=== PATIENT | female | born 1995 | race Caucasian/White ===

== ENCOUNTER 2022-11-08 08:00 | Outpatient (RCR) | payer BC, SELFPAY ==
--- NOTE | 2022-11-08 08:00 | BH.COMM_ITS ---
Communication Note Communication with Client Communication Note: Completed initial paperwork with pt. No changes since intake appointment. Completed the CSSR-S with pt and pt is moderate risk. Pt denies any suicide attempts, but pt reports have fleeting SI with thoughts of methods, but denies ever having intent because of her family. Pt denies any active SI, plan, or intent today. Pt does not have access to guns and denies access to stockpile of medications. Provided lethal means counseling. Encouraged pt to bring any un needed medications to IOP and staff would help dispose medications using doterra bags. Discussed with tx team and Dr. 

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
--- NOTE | 2022-11-09 10:10 | BH.SGPN.GN ---
Behaviors/Verbalizations/Mental Status: []Pt alert and oriented, appropriate grooming/appearance. Eye contact good. Motor activity appropriate. Speech within normal limits. Affect constricted, mood depressed. Thoughts linear, logical, no signs of hallucinations or delusions. Client Response/Progress/Benefit: []Pt was an engaged participant AEB taking notes, engaging in small group discussion and listening attentively to others. Attentive during psychoeducation. Contributed during interactive discussions in which peers attempted to define crisis. Pt identified some examples of potential crisis. Group also worked together to identify unhealthy responses to crisis which included: isolation, self-harm, substance abuse, avoidance, and lashing out. Pt identified personal warning signs as: apathy, self-sabotage, and anger/irritability. Benefited from increased understanding of crisis and awareness of personal responses to crisis. Pt will continue IOP tx to improve daily functioning, decrease anger outbursts, and prevent decompensation.
--- NOTE | 2022-11-09 11:05 | BH.SGPN.GN ---
Behaviors/Verbalizations/Mental Status: [] Eye contact is good. Motor activity is appropriate. Appearance is casual. Speech is Appropriate. Mood is depressed. Affect is congruent. Thoughts are linear and logical. No evidence of psychosis Client Response/Progress/Benefit: [] Pt did not participate in group discussions however was Attentive during psychoeducation. In small group pt along with peers developed an action plan for their crisis warning signs. Pt identified two crisis warning signs as well as an action plan for each. One crisis warning sign is apathy with an actions plan that involved; grounding exercises, escapism, workout, grateful list, opposite action. Other warning sign was self-sabotage with an action plan that involved; accountability davonte, remind self of facts/consequences of actions, delay/distract/decide. Benefited from increased awareness of crisis warning signs and by developing crisis intervention strategies. Will continue in IOP to prevent decompensation, stabilize mood, and improve functioning. Narrative Note: []
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
--- NOTE | 2022-11-09 12:51 | BH.DR.ITP ---
Initial Treatment Plan Patient Information Visit Information: ADMISSION DATE: EXPECTED LOS: 4-6 weeks Problems/Symptoms Problem #1:: Depression Symptom:: Sadness, guilt, irritability, low energy, decreased concentration, passive thoughts of , passive suicidal ideation Problem #2:: Anxiety Symptom:: Worry, rumination, panic attacks, avoidance, nightmares, flashbacks
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
--- NOTE | 2022-11-11 11:05 | BH.SGPN.GN ---
Behaviors/Verbalizations/Mental Status: [] Pt alert and oriented, neatly dressed and groomed. Eye contact good. Motor activity appropriate. Speech within normal limits. Affect flat, mood anxious and depressed. Thoughts linear, logical, no signs of hallucinations or delusions. Client Response/Progress/Benefit: [] Pt engaged participant AEB completing self-assessment worksheet and providing input throughout discussion. Pt completed worksheet identifying current self-care practices and what self-care activities pt wants to start using. Pt selected emotional self-care to begin practicing more consistently. Pt plans to do this by practicing the coping skills she learns at [facility] each day. Appeared to benefit from completing the self-care evaluation and gaining insights into current self-care practices, as well as identifying areas in which pt would like to improve upon.? Pt will continue IOP tx to prevent decompensation, increase healthy coping skills, and improve emotional regulation. ? Narrative Note: []
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
--- NOTE | 2022-11-11 15:05 | BH.MTP_ITS ---
Master Treatment Plan Patient Information Program Physician:: Dr. Jay Primary Therapist:: Telma Faria [facility] Psychiatric Diagnoses Psychiatric Diagnoses:: 1. Major depressive disorder, single episode, severe without psychosis (F32.2) 2. PTSD 3. Generalized anxiety disorder 4. Cluster B traits Diagnosis Code(s):: F33.2 Estimated LOS Estimated LOS (in weeks):: 6 Problem/Goal #1 Problem/Goal #1 Stated Goal:: Client will reduce depression and anger due to Major Depressive Disorder through Intensive Outpatient Program. Description of Barriers: Potential barriers include: distorted thoughts, anger, negative self-talk, and psychosocial stressors. Client expresses Objectives Objective #1: Stated Objective: Client will learn and utilize 2-3 healthy coping strategies to manage depressive symptoms as shown by reduced DSM-5 cross-cutting symptom measure score. Interventions: Therapist will help client identify triggers and warning signs of depression and will teach client various coping skills to manage client?s symptoms and give client tangible resources to use to regulate emotions. Discharge Criteria: Pt will have met this goal when pt reports use of healthy coping skills that help manage mood and pt's score on the DSM 5 cross cutting measure for depression has been decreased. Target Date: 12/20/22 Review Date: 12/07/22 Objective #2: Stated Objective: Identify, challenge, and replace anger-inducing self- talk with self-talk that facilitates a less angry reaction. Interventions: Explore the client?s self-talk that mediates his/her angry feelings and actions. Identify and challenge biases, assisting him/her in generating appraisals and self-talk that corrects for the biases and facilitates a more flexible response to frustration. Combine new self-talk with calming skills as par of a set of coping skills to manage anger. Discharge Criteria: Client will have met this objective when can identify anger inducing self-talk and replace with thoughts that help decrease reactive anger responses. Target Date: 12/20/22 Review Date: 12/07/22 Problem/Goal #2 Problem/Goal #2 Stated Goal:: Stabilize anxiety level while increasing ability to function on daily basis. Objectives Objective #1: Stated Objective: Client will learn and implement 2-3 calming skills to reduce overall anxiety and manage anxiety symptoms. Interventions: Therapist will help client increase awareness of anxiety triggers and educate client on the ways anxiety impacts overall health. Therapist will teach client various calming and mindfulness strategies to promote emotional regulation and reduction of anxiety. Therapist will encourage client to implement healthy coping skills on a regular basis. Discharge Criteria: Client will have achieved this goal when can verbalize and consistently utilize at least 2 calming strategies that client reports help decrease anxious symptoms. Target Date: 12/20/22 Review Date: 12/07/22 Objective #2: Stated Objective: Pt will decrease anxious symptoms AEB pt?s score on the DSM 5 cross-cutting measure improve pt?s daily functioning. Interventions: Through groups and individual therapy, pt will be provided education about anxiety?s impact on body and common physiological reaction to anxiety. Therapist will teach pt appropriate breathing techniques and build healthy coping skills to manage daily anxieties. Discharge Criteria: Pt will have met this goal when pt?s score on the DSM 5 cross cutting measure for anxiety has been decreased and per pt?s report daily functioning has improved. Target Date: 12/20/22 Review Date: 12/07/22
--- NOTE | 2022-11-24 10:10 | BH.SGPN.GN ---
Behaviors/Mental Status: [] Eye contact is fair. Motor activity is appropriate. Appearance is casual. Speech is Appropriate. Mood is anxious. Affect is constricted. Thoughts are linear and logical. No evidence of psychosis. Client Response/Progress/Benefit: [] Pt engaged participant AEB listening attentively to others, taking notes, and providing input at times. Participated in and was engaged during experiential activity. Engaged during interactive discussion on what failure means to the group in which peers identified that failure is ... not meeting expectations, not having a desired outcome, and not succeeding in a task. Group was able to identify impact of fear of failure. Client stated fear of failure has kept her from going to social events out of fear of saying something dumb in front of others. Attentive during interactive discussion on the role that FOF plays in mental wellness, depression, anxiety, and growth. Benefited from increased awareness of how the role that FOF plays in mental health and decision-making. Will continue in IOP to challenge distortions, increase healthy coping, and prevent decompensation.
--- NOTE | 2022-11-24 11:48 | PCM.BH.PN_ITS ---
Progress Note Progress Note: And history of Present Illness/Interim History: The patient is a 26-year-old single female with a history of depression and anxiety who is seen in follow-up at the [facility] behavioral health IOP program. I last saw the patient 2 weeks ago and at that time we continued weaning her Zoloft and she discontinued it 1 week ago. In addition Effexor was changed to Effexor XR 150 mg daily and she was instructed that she could increase her Vistaril to 100 mg at bedtime for sleep. The patient states that she has tolerated the medication changes well and her sleep is much better at 7 or 8 hours a night now. Her mood and anxiety have both improved and she feels she is doing much better overall. She states that she has only had 1 really bad day in the past 2 weeks now. She has not had any anger outbursts in the last week. She has had only 1 panic attack in the last 2 weeks and she tried to use some relaxation exercises she is using to cope with this. Energy level is now okay. She denies passive thoughts of or passive suicidal ideation now. She also denies plan for suicide, active suicidal ideation, homicidal ideation, hallucinations or delusions. She feels she is learning valuable skills in the IOP. Zoloft discontinued 1 week ago. Effexor XR 150 mg p.o. daily (on this for 2 weeks); BuSpar 10 mg p.o. 3 times daily; hydroxyzine 100 mg p.o. nightly; clonazepam 0.5 mg up to 3 times daily but patient is not requiring it lately. Current Psychiatric Medications: [] See above Mental Status Examination: [] The patient is a 26-year-old female who is overweight but appears normal for stated age and is ambulatory with a normal gait. She is casually dressed and groomed with good hygiene and has no psychomotor agitation or retardation. She is cooperative and pleasant during the interview. Eye contact is good and speech is normal rate and rhythm and fluent with no pressure. Mood is mildly anxious. Affect is mildly constricted. Thought process is goal-directed and organized. Thought content: The patient is hopeful for the future but worried about her work litigation and inquiries from the process. There is no evidence of passive thoughts of , suicidal ideation, plan for suicide, homicidal ideation, hallucinations or delusions. Reality testing is intact. Intelligence is average or above. Judgment is intact. Insight is is fair. Diagnoses: [] 1. Major depressive disorder, single episode, severe without psychosis (F32.2) 2. PTSD 3. Generalized anxiety disorder 4. Cluster B traits 5. Work and primary support issues Plan: [] The patient will continue the IOP program at [facility] as the structure, support, education and group therapy will hopefully prevent worsening of the patient's symptoms which could require hospitalization. She felt safe during the interview and if it anytime she does not feel safe she will let us know or go to the emergency room. No medication changes were made today. She will continue to follow-up with her outpatient providers and I will see the patient in follow-up in 2 weeks.
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
--- NOTE | 2022-11-26 11:15 | BH.SGPN.GN ---
Behaviors/Verbalizations/Mental Status: []Client alert and oriented, casually dressed and groomed. Eye contact good. Motor activity appropriate. Speech within normal limits. Affect congruent, mood dysthymic. Thoughts linear, logical, no signs of hallucinations or delusions. Client Response/Progress/Benefit: [] Client was an active participant throughout AEB contributing to small group discussion, participating in the activity, and taking notes. Client provided input during discussion on the types of support our supports can provide. Able to identify the types of supports provided by current support system. Client reported gaining awareness that they could benefit from more tangible and informational supports. Shared this will help to improve her sense of belonging and security as well as develop healthier coping skills. Client identified steps to achieve this as reminding herself she is not a burden, being honest with supports, and considering the advice they give. Client seemed to benefit from identifying the types of support and areas client could benefit from improving. Recommended to continue IOP tx to increase healthy coping, promote mood stability, and improve overall functioning. Narrative Note: []
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
--- NOTE | 2022-11-26 15:03 | BH.MDN ---
Multi-Disciplinary Note Note 45-min Individual: Time Started:: 10:10 Date: 11/26/22 Time Stopped:: 10:50
--- NOTE | 2022-11-30 09:00 | BH.SGPN.GN ---
Behaviors/Verbalizations/Mental Status: [] Pt alert and oriented, neatly dressed and groomed. Eye contact good. Motor activity appropriate. Speech within normal limits. Affect congruent, mood disappointed. Thoughts linear, logical, no signs of hallucinations or delusions. Reviewed pt?s symptom tracker, no risk for suicidal ideation, plan, or intent 11/30/22 Client Response/Progress/Benefit: []Pt responded well to session, attentive and engaged. Pt reports feeling disheartened this morning as pt is upset that people treat people so badly. Pt has ongoing issues with work and pt shared she will now have to take legal action. Pt shared she is no longer angry like she was last week, but now pt feels apathetic. Pt reached out to a excavating contractor and she and her best friend had a helpful talk over the weekend. Pt reports using some of the skills learned in IOP to communicate more effectively with her friend. Pt appeared to benefit from reflecting on their application of coping skills. Pt will continue IOP tx to prevent decompensation, improve emotional regulation skills, and improve daily functioning. Narrative Note: []
--- NOTE | 2022-11-30 10:14 | BH.SGPN.GN ---
Behaviors/Verbalizations/Mental Status: []Client alert and oriented, casually dressed and groomed. Eye contact good. Motor activity appropriate. Speech within normal limits. Affect congruent, mood content. Thoughts linear, logical, no signs of hallucinations or delusions. Client Response/Progress/Benefit: []Client receptive of session AEB providing input throughout, listening attentively to others, and taking notes. Attentive throughout psychoeducation on the cognitive triangle and maintenance cycles. Worked on identifying own vicious cycle. Engaged in group discussion reviewing the impact of daily activities and behaviors on either reinforcing unhealthy maintenance cycles and depression or assisting in reducing symptoms (?down? vs ?up? activities). Client identified common ?down? activities they engage in as: sad movies, social media, listening to sad music, and hitting snooze. Common ?Up? activities client identified included: music, doing her hair and make-up, motorcycle rides, devotions, and time outdoors. Appeared to benefit from increased awareness of current behaviors and impact these have on mental health. Pt to continue IOP to increase healthy coping skills, challenge distortions, and prevent decompensation. Narrative Note: []
--- NOTE | 2022-11-30 11:10 | BH.SGPN.GN ---
Behaviors/Verbalizations/Mental Status: [] Eye contact is good. Motor activity is appropriate. Appearance is casual. Speech is Appropriate. Mood is anxious. Affect is congruent. Thoughts are linear and logical. No evidence of psychosis. Client Response/Progress/Benefit: [] Pt responded well to session, attentive and engaged in group discussions and activity. Group shared having patience and being willing to re-evaluate helped the group be successful during activity. Group discussed values and the benefits that knowing one's values can have on one's mental health. Pt explored own values and identified family relationships, physical well-being, career, and spirituality as their top values. Pt set goals to reach out more often to family/friends, live according to spiritual principles, and increase understanding in spirituality to live according to values. Pt appeared to benefit from exploring values and creating a weekly goal. Will continue in IOP to prevent decompensation, stabilize mood, and increase healthy coping. Narrative Note: []
--- NOTE | 2022-12-01 15:37 | BH.TPR ---
Treatment Plan Review Demographics Date of Admission:: 11/08/22 Date of Treatment Plan Review:: 12/01/22 Admitting Diagnoses:: 1. Major depressive disorder, single episode, severe without psychosis (F32.2) 2. PTSD 3. Generalized anxiety disorder 4. Cluster B traits 5. Work and primary support issues Current Diagnoses:: 1. Major depressive disorder, single episode, severe without psychosis (F32.2) 2. PTSD 3. Generalized anxiety disorder 4. Cluster B traits 5. Work and primary support issues Patient Status Patient's Response to Treatment:: Pt is a mostly passive participant in group sessions, however does appear to listen to others and take notes throughout. Pt engages in individual sessions and tries to apply skills outside treatment environment. Status of Current Problems and Symptoms: Ongoing problems. Client continues to report slight depressed symptoms. Client's DSM 5 at review shows a 33% reduction in depression compared to admission scores. Client's anxiety is variable depending on if faced with triggers from work investigation. Client's scores do indicate a 63% reduction in anxiety. Client continues to report severe agitation/anger. Client's scores indicate a 100% decrease in thoughts of suicide. Progress Problem #1: Problem Name:: Depression and anger Status of Goals:: Obj 1 - met, ongoing work encouraged. Client is able to identify healthy coping skills like opposite action, challenging negative thoughts, engaging in extracurricular activities, and reaching out to support. Client could benefit from continued reinforcement in healthy skills. Obj 2 - not met. Client continues to report severe agitation/anger on DSM 5 cross-cutting measure at review. Client does report progress with not engaging in an destruction of her property when anger. Client still struggles with taking anger out on her friends at times. Team Recommendations:: Team recommends to continue current goals and objectives with focus on reinforcement of healthy coping skills, building anger management skills, and consistency of applying skills. Problem #2: Problem Name:: Anxiety Status of Goals:: Obj 1 - met, ongoing work encouraged. Client able to identify healthy calming skills like belly breathing, grounding, and mindfulness. Client reports practicing skills outside treatment environment. Client's anxiety continues to get spiked when situations happen that highlight the investigation at work. Client has been trying to limit reading things about the investigation. Obj 2 - met, ongoing work encouraged. Client's DSM 5 cross cutting scores show a 63% reduction in anxious symptoms when compared to admission scores. Team Recommendations:: Team recommends to continue current goals and objectives to reinforce skills learned and show consistency with anxiety symptom reduction.
== END 2022-12-02 23:59 ==
LOC: BHIOP 08:00
PROVIDERS: Referring Provider Psychiatry & Neurology Psychiatry; Visit Provider Psychiatry & Neurology Psychiatry
DX: F33.2 Major depressive disorder, recurrent severe without psychotic features (principal); F41.1 Generalized anxiety disorder; F43.10 Post-traumatic stress disorder, unspecified
CPT/HCPCS: S9480; 90834; 90853

== ENCOUNTER 2022-12-03 08:30 | Outpatient (RCR) | payer BC, SELFPAY ==
--- NOTE | 2022-12-03 10:10 | BH.SGPN.GN ---
Behaviors/Verbalizations/Mental Status: []Pt alert and oriented, casually dressed and groomed. Eye contact fair. Motor activity appropriate. Speech within normal limits. Affect constricted, mood dysthymic. Thoughts linear, logical, no signs of hallucinations or delusions. Client Response/Progress/Benefit: [] Pt receptive to session AEB contributing to small group discussion, as well as listening attentively to others, and taking notes. Worked with group to brainstorm the positive and negative aspects of stress on physical and mental health. Group did well to identify the benefits of stress as well as the impact of distress on performance, relationships, and mental health. Pt identified their personal top stressors as: mental health, medication, friends and work stress. Pt seemed to benefit from increased awareness of current stressors and impact stress has on mental health. Recommended to continue IOP tx to challenge distorted thoughts, increase mindfulness, and prevent decompensation.
--- NOTE | 2022-12-03 11:15 | BH.SGPN.GN ---
Behaviors/Verbalizations/Mental Status: []Pt alert and oriented, neatly dressed and groomed. Eye contact good. Motor activity appropriate. Speech within normal limits. Affect congruent, mood focused. Thoughts linear, logical, no signs of hallucinations or delusions. Client Response/Progress/Benefit: []Pt active in group discussions and experiential activity. Attentive during psychoeducation on the 4 A's (Avoid, adapt, alter, accept) of coping with stress as well as strategies to identify stressors in which one has no control, little control, or a great deal of control over. Was able to identify the connection between the experimental activity and utilization of stress management skills. Prior to the activity starting pt appeared distressed and low, but used opposite action and this helped pt?s mood and focus. The group linked effective communication and opposite action as the biggest strategies for managing stressors. Benefited from increased awareness of stress management strategies. Will continue in IOP to prevent decompensation, increase distress tolerance skills, and improve daily functioning. ? Narrative Note: []
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
--- NOTE | 2022-12-06 11:41 | BH.COMM ---
Communication Note Communication with Client Communication Note: Pt cancelled today due to illness. Will continue to check-in with patient regarding severity of illness.
--- NOTE | 2022-12-14 11:42 | BH.COMM_ITS ---
Communication Note Communication with Client Communication Note: Pt has not attended [facility] since 12/03/22. Plan was to return on 12/13/22 however she remains ill. If she is unable to attend any days this week will discuss with treatment team discharge from [facility].
--- NOTE | 2022-12-14 11:42 | BH.COMM ---
Communication Note Communication with Client Communication Note: Pt has not attended [facility] since 12/03/22. Plan was to return on 12/13/22 however she remains ill. If she is unable to attend any days this week will discuss with treatment team discharge from [facility].
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
--- NOTE | 2022-12-15 11:15 | BH.SGPN.GN ---
Behaviors/Verbalizations/Mental Status: []Pt alert and oriented, casually dressed and groomed. Eye contact good. Motor activity appropriate. Speech within normal limits. Affect congruent, mood dysthymic. Thoughts linear, logical, no signs of hallucinations or delusions. Client Response/Progress/Benefit: [] Pt was an active participant AEB providing input and was actively taking notes. Connected with the topic of pitfalls and listened to group discussion on internal and external barriers that prevent from choosing a healthier path to mental wellness. Group worked together to identify examples of personal internal pitfalls and pt identified theirs as not using their coping skills, isolating, and minimizing symptoms. Pt benefited from group as Pt learned to better identify and normalize potential barriers to improving mental health symptoms. Pt will continue IOP tx to prevent decompensation, improve daily functioning, and reduce use of unhealthy coping skills. ? Narrative Note: []
--- NOTE | 2022-12-15 11:20 | BH.SGPN.GN ---
Behaviors/Verbalizations/Mental Status: []Pt alert and oriented, casually dressed and groomed. Eye contact fair. Motor activity appropriate. Speech within normal limits. Affect congruent. Mood euthymic. Thoughts linear, logical, no signs of hallucinations or delusions. Client Response/Progress/Benefit: []Pt was an active participant AEB contribution to discussion, taking notes, and willingness to engage in group activity. Connected with the topic of pitfalls and listened to group discussion on internal and external barriers that prevent from choosing a healthier path to mental wellness. Group worked together to identify examples of internal pitfalls. Pt identified personal pitfalls. Pt reported wanting to work on isolating and not using healthy coping skills consistently. Pt identified strategies that can help her to include opposite action and focusing on one skill at a time. Pt benefited from group as pt learned to better identify and normalize potential barriers to improving mental health symptoms. Pt to continue IOP to continue use of healthy coping skills, challenge negative thinking, and prevent decompensation.
--- NOTE | 2022-12-15 12:06 | PCM.BH.PN_ITS ---
Progress Note Progress Note: And history of Present Illness/Interim History: The patient is a 27-year-old single female with a history of depression and anxiety who is seen in follow-up at the [facility] behavioral health IOP program. I last saw the patient 3 weeks ago and at that time no medication changes were made. The patient states that she has become more stressed and anxious and a little bit more down in the past week or so because the news articles in the social media response came out on December 13 and this is really stressed the patient out. She had 1 anger episode but was able to control it was not out of control like she usually is. She did not break anything. Her mood is still better than it w as before despite the severe ongoing stressors and she feels that she would have not worsened if not for this horrible stress. Sleep remains good at 7 to 8 hours a night. She has not had any panic attacks in the last 3 weeks which is a big improvement. She does endorse passive thoughts of since the December 13 when the news of her legal issues came out. She also endorses passive, fleeting suicidal ideation on occasion but denies any plan for suicide and denies active suicidal ideation homicidal ideation, hallucinations or delusions. She is having more nightmares lately that people are being mean to her and she feels this is due to the tach she is getting on social media. Current Psychiatric Medications: [] Effexor XR 150 mg p.o. daily (x5 weeks); BuSpar 10 mg p.o. 3 times daily; hydroxyzine 100 mg p.o. nightly; clonazepam 0.5 mg (not taking it). Mental Status Examination: [] The patient is a 27-year-old female who is overweight but normal for stated age and is ambulatory with a normal gait. She has no psychomotor agitation or retardation and is casually dressed and groomed with good hygiene. She is cooperative during the interview. Eye contact is good and speech is normal rate and rhythm and fluent with no pressure. Mood is anxious and mildly depressed. Affect is constricted. Thought process is goal-directed and organized. Thought content: There is evidence of passive thoughts of and fleeting, passive suicidal ideation. There is no evidence of plan for suicide, active suicidal ideation, homicidal ideation, hallucinations or delusions. Reality testing is intact. Intelligence is average or above. Judgment is intact. Insight is fair and improving. Impulsivity is moderate. Diagnoses: [] 1. Major depressive disorder, single episode, severe without psychosis (F32.2) 2. PTSD 3. Generalized anxiety disorder 4. Cluster B traits 5. Work and primary support issues Plan: [] The patient will continue the IOP program at [facility] as the structure, support, education and group therapy will hopefully prevent worsening of the patient's symptoms. She felt safe during the interview and if it anytime she does not feel safe she will let us know or go to the emergency room. The risk, options, possible complications of the side effects of the medication were discussed with the patient and she understands and accepts these. The patient agrees to add Lamictal 25 mg p.o. daily for 2 weeks and then increase to 50 mg p.o. daily for 2 weeks. Prescription is sent in for this. The patient will continue to follow-up with her outpatient providers and I will see the patient in follow-up in 2 weeks.
--- NOTE | 2022-12-17 09:01 | BH.SGPN.GN ---
Behaviors/Verbalizations/Mental Status: []Pt alert and oriented, casually dressed and groomed. Eye contact fair. Motor activity appropriate. Speech within normal limits. Affect congruent, mood anxious. Thoughts linear, logical, no signs of hallucinations or delusions. Reviewed pt?s symptom tracker, no suicidal ideation reported, denies plan, or active intent. Client Response/Progress/Benefit: [] Pt responded well to session, open to processing with group and engaged. On symptom tracker pt reports a 0/5, with 5 being severe, for depression and a 2/5 for anxiety. 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 Patient stated this meeting made her from more hopeful that something might have she be done about what she is experienced and had to go through. Client stated stressor is having to work tonight with a iliana that has been talking about her negatively in regards to the trauma that she has occurred in her job. Patient stated she is going to try to focus on what she needs to do in order to complete her task and not get involved in any trauma. Patient identified skills she is using the last few days to be breathing, asking for help, and challenge negative thoughts. Pt appeared to benefit from supportive feedback of the group, as well as reflecting on mental health wins. Pt will continue IOP tx to challenge distorted thoughts, continue utilization of healthy coping skills and prevent decompensation.
--- NOTE | 2022-12-17 10:10 | BH.SGPN.GN ---
Behaviors/Verbalizations/Mental Status: [] Eye contact is good. Motor activity is appropriate. Appearance is casual. Speech is Appropriate. Mood is anxious. Affect is congruent. Thoughts are linear and logical. No evidence of psychosis. Client Response/Progress/Benefit: [] Pt was an active participant in group discussions. Attentive during psychoeducation AEB by note taking. Pt worked along with her peers in small groups and worked to define guilt, inappropriate guilt, and appropriate guilt. Interactive discussion on examples of both inappropriate and appropriate guilt. Pt identified a personal example of inappropriate guilt which was standing up for herself at work and getting made fun of and how this impacted her mental health as she displaced her anger on others. Benefited from increased awareness of guilt and the differences between appropriate and inappropriate guilt. Will continue in IOP to prevent decompensation, maintain safety, and improve functioning. Narrative Note: []
--- NOTE | 2022-12-17 11:15 | BH.SGPN.GN ---
Behaviors/Verbalizations/Mental Status: []Pt alert and oriented, neatly dressed and groomed. Eye contact good. Motor activity appropriate. Speech within normal limits. Affect congruent, mood calm. Thoughts linear, logical, no signs of hallucinations or delusions. Client Response/Progress/Benefit: []Pt engaged participant AEB listening attentively to others and providing input throughout group. During challenge activity pt worked cooperatively with small group. Pt made connection that it takes patience, willingness to be uncomfortable, and problem solving to work through appropriate and inappropriate guilt. Pt worked with their small group to identify strategies to manage inappropriate guilt. Pt stated pt often feels inappropriate guilt when advocating for herself. Pt wants to work on searching for feedback from trusted people in her life. Pt seemed to benefit from learning about strategies to manage appropriate and inappropriate guilt. Pt to continue IOP to improve daily functioning, reduce negative thinking patterns, and increase self-compassion. Narrative Note: []
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
--- NOTE | 2022-12-21 09:05 | BH.SGPN.GN ---
Behaviors/Verbalizations/Mental Status: [] Eye contact is poor. Motor activity is appropriate. Appearance is casual. Speech is Appropriate. Mood is anxious. Affect is congruent. Thoughts are linear and logical. No evidence of psychosis. Reviewed daily check in sheet and no reports of suicidal ideations or intent. Client Response/Progress/Benefit: [] Pt participated when prompted. Attentive. Daily symptom tracker notes / for irritability. Identified a win as ?making it through the work week?. Shared stressors at work which resulted in a panic attack. Her work environment and certain co-workers are significant triggers to overwhelming emotions. She is proud that she ?pushed through? and finished her shift. Emotion for today is ?stressed?. She has an upcoming weekend trip she has planned for self-care which she is looking forward too. Limited progress noted per pt report however her daily symptom tracker scores indicate improvement. Benefited from group support, encouragement, and feedback. Will continue in IOP to maintain safety, stabilize mood, and to increase healthy coping. Narrative Note: []
--- NOTE | 2022-12-21 10:15 | BH.SGPN.GN ---
Behaviors/Verbalizations/Mental Status: []Pt alert and oriented, casually dressed and groomed. Eye contact good. Motor activity appropriate. Speech within normal limits. Affect constricted, mood content. Thoughts linear, logical, no signs of hallucinations or delusions. Client Response/Progress/Benefit: [] Pt engaged in session AEB listening attentively to others and providing insight to group discussion. Pt engaged in activity, able to connect how it can be uncomfortable and difficult to accept when things are out of one?s own control. Pt worked with group to identify what things in life can be hard to accept. Group identified things hard to accept as: of a loved one, body image, loss of relationship, mental health diagnosis, other?s behaviors, and past decisions. Pt worked on identifying what personal things are hard to accept such as rejection, letting people go, and unfairness. Pt seemed to benefit from increased awareness of importance of acceptance. Pt to continue IOP to improve mood stability, increase application of healthy coping skills, and prevent decompensation. Narrative Note: []
--- NOTE | 2022-12-21 11:15 | BH.SGPN.GN ---
Behaviors/Verbalizations/Mental Status: []Pt alert and oriented, casually dressed and groomed. Eye contact fair to good. Motor activity appropriate. Speech within normal limits. Affect congruent, mood anxious and dysthymic. Thoughts linear, logical, no signs of hallucinations or delusions. Client Response/Progress/Benefit: []Pt responded well to session AEB taking notes and contributing to discussion throughout. Pt engaged as group continued discussion on acceptance and the mental health benefits of practicing acceptance. Pt and peers identified what makes acceptance challenging and pt completed a self-reflection exercise on what is hard to accept in pt's life. Pt identified struggling to accept that ?I can?t control other people?s opinions of me? Group identified strategies to increase acceptance and pt shared wanting to focus on practicing self-compassion and reflection. Pt appeared to benefit from gaining insight and learning strategies to increase acceptance. Pt will continue IOP tx to promote mood stability, continue to combat distortions, and prevent decompensation. Narrative Note: []
--- NOTE | 2022-12-30 08:19 | BH.COMM_ITS ---
Communication Note Communication with Client Communication Note: Pt called to cancel attending IOP on 12/28/22 and 12/30/22. Pt has not attended IOP since 12/21/22. This newspaper writer asked if pt was in a place to consistently attend IOP. Pt reported she has been picking up more shifts at work and is feeling too overwhelmed to be able to do IOP as well. This newspaper writer asked if pt wanted to discharge from IOP and pt reported she would at this time. Pt agreeable to follow up with her PCP, Sue Reyez, for medication management and her outpatient counseling Marina Myrick at [facility].
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
== END 2022-12-30 08:22 | disposition home or self-care (01) ==
LOC: BHIOP 08:30
PROVIDERS: Referring Provider Psychiatry & Neurology Psychiatry; Visit Provider Psychiatry & Neurology Psychiatry
DX: F33.2 Major depressive disorder, recurrent severe without psychotic features (principal); F43.10 Post-traumatic stress disorder, unspecified; F41.1 Generalized anxiety disorder
CPT/HCPCS: S9480; 90834; 90853